=== PATIENT | female | born 1980 | race Caucasian/White ===

== ENCOUNTER 2017-07-22 15:11 | Emergency (ER) | payer OTHER ==
--- NOTE | 2017-07-22 16:25 | RAD ---
Indication: Mid to lower back pain with forward radiation. Onset following starting a new exercise class last week. Comparison: No relevant prior exams available on the [facility] PACS for comparison. Technique: AP, lateral, and oblique views lumbar sacral spine. Report: Alignment is anatomic. No cortical disruption or trabecular impaction to indicate a vertebral body fracture. Oblique views without evidence for spondylolysis. Preserved disc spaces. Unremarkable soft tissue contours. IMPRESSION: Negative radiographs of the lumbar sacral spine.
--- NOTE | 2017-07-22 16:27 | ED ---
Back Pain - HPI Summary HPI Summary: 37F presents with back pain since Wednesday. She states that she was going clay when it started. She denies any history of back pain. She denies any saddle anaesthesia or loss of bowel or bladder. She denies any dyusira, hematuria. She denies any history of kidney stones or pyelo. She has history of ulcerative colitis. She has been taking tynelol with some relief. She states the area feels tight. She states it hurts her entire lower back. She denies any pain or numbness down leg. She denies any weakness. She denies any fever. - History of Current Complaint Chief Complaint: EDBackInjuryPain Stated Complaint: LOWER BACK & FLANK PAIN Time Seen by Provider: 07/22/17 15:12 Pain Intensity: 8 - Allergies/Home Medications Allergies/Adverse Reactions: Allergies Allergy/AdvReac Type Severity Reaction Status Date / Time No Known Drug Allergy Allergy Unknown Unknown Verified 07/22/17 15:30 Reaction Details PMH/Surg Hx/FS Hx/Imm Hx Endocrine/Hematology History: Denies: Hx Anticoagulant Therapy GI History: Reports: Other GI Disorders - UC - Immunization History Immunizations Up to Date: Yes Infectious Disease History: No Infectious Disease History: Denies: Traveled Outside the [place] in Last 30 Days - Family History Known Family History: Positive: Hypertension - Social History Alcohol Use: Daily Alcohol Amount: 2-3 Substance Use Type: Reports: None Smoking Status (MU): Former Smoker Review of Systems Negative: Fever Negative: Chest Pain Negative: Shortness Of Breath Positive: Myalgia - back pain All Other Systems Reviewed And Are Negative: Yes Physical Exam Triage Information Reviewed: Yes Vital Signs On Initial Exam: Initial Vitals Temp Pulse Resp BP Pulse Ox 97.7 F 80 16 138/79 99 07/22/17 15:13 07/22/17 15:13 07/22/17 15:13 07/22/17 15:13 07/22/17 15:13 Vital Signs Reviewed: Yes Appearance: Positive: Well-Appearing Skin: Positive: Warm, Dry Head/Face: Positive: Normal Head/Face Inspection Eyes: Positive: Normal, Conjunctiva Clear Respiratory/Lung Sounds: Positive: Clear to Auscultation, Breath Sounds Present Cardiovascular: Positive: Normal, RRR Musculoskeletal: Positive: Strength/ROM Intact - back, Other - tenderness across lower back, neg SLR, good pulses Neurological: Positive: Sensory/Motor Intact Psychiatric: Positive: Normal - Riri Coma Scale Coma Scale Total: 15 Diagnostics - Vital Signs Vital Signs Temp Pulse Resp BP Pulse Ox 07/22/17 15:20 98.0 F 80 16 132/73 100 07/22/17 15:13 97.7 F 80 16 138/79 99 - Laboratory Lab Statement: Any lab studies that have been ordered have been reviewed, and results considered in the medical decision making process. - Radiology back Xray Interpretation: No Acute Changes Radiology Interpretation Completed By: Radiologist Back Pain Course/Dx - Course Course Of Treatment: 37F presents with back pain since Wednesday. She states that she was going clay when it started. She denies any history of back pain. She denies any saddle anaesthesia or loss of bowel or bladder. She denies any dyusira, hematuria. She denies any history of kidney stones or pyelo. She has history of ulcerative colitis. She has been taking tynelol with some relief. She states the area feels tight. She states it hurts her entire lower back. She denies any pain or numbness down leg. She denies any weakness. tender across lower back. neg SLR. neg CVA tenderness. urine normal. xray normal. will treat as muscular with muscle relaxation. patient understand and agrees with plan. - Diagnoses Differential Diagnosis/HQI/PQRI: Positive: Herniated Disc, Strain, Sprain Provider Diagnoses: Back pain Discharge - Discharge Plan Condition: Good Disposition: HOME Prescriptions: Cyclobenzaprine TAB* [Flexeril 10 MG TAB*] 10 mg PO TID PRN #9 tab PRN Reason: Pain Lidocaine PATCH 5%* [Lidoderm 5% Patch*] 1 patch TRANSDERM DAILY #5 patch Patient Education Materials: Back Pain (ED) Referrals: Leana Escalera NP [Primary Care Provider] - Additional Instructions: Take muscle relaxers three times a day Apply lidocaine patches to area for up to 12 hours in one 24 hour period Use Tylenol for pain every 6 hours ice/heat area, move as much as possible Follow up with primary within 5 days Return to ED if develop any new or worsening symptoms
[2017-07-22 16:53] LABS: Urine Bacteria Absent (Absent); Urine Bilirubin Negative (Negative); Urine Glucose 1+(50 mg/dL) (Negative); Urine Nitrite Negative (Negative)
[2017-07-22 17:44] VITALS: BP 144/75
== END 2017-07-22 17:39 | disposition home or self-care (01) ==
LOC: ED 15:11
DX: M54.5 Low back pain (principal); R10.84 Generalized abdominal pain; Z87.891 Personal history of nicotine dependence
CPT/HCPCS: 72110; 81003; 81015; 99282